=== PATIENT | male | born 1980 | race Caucasian/White ===

== ENCOUNTER → 2022-03-15 | Outpatient (CLI) | payer BC ==
[2022-03-15 15:38] LABS: RED CELL DISTRIBUTION WIDTH 13.7 % (11.5-14.5)
[2022-03-15 15:56] LABS: CARBON DIOXIDE 27.1 mmol/L (20.0-32)
== END | disposition home or self-care (01) ==
LOC: LAB 15:10
PROVIDERS: ATTEND Nurse Practitioner Family
DX: R10.13 Epigastric pain (principal)
CPT/HCPCS: 36415; 80053; 82150; 83690; 85027

== ENCOUNTER → 2022-03-16 | Outpatient (CLI) | payer BC, OTHER ==
--- NOTE | 2022-03-16 15:59 | DIREP ---
PROCEDURE:ABDOMINAL ULTRASOUND COMPARISON:None. INDICATIONS:R10.13 EPIGASTRIC PAIN TECHNIQUE:High resolution sonographic examination was performed of the abdomen. FINDINGS: PANCREAS:The pancreas is partially obscured by bowel gas shadowing. Visualized portions appear unremarkable. LIVER:Enlarged. Increased hepatic echotexture with poor sonographic penetration consistent with hepatic steatosis. There is decreased echotexture adjacent to the gallbladder fossa, consistent with focal fatty sparing. Hypoechoic area centrally in the liver measuring 2 x 1.4 x 1.8 cm. Hepatopetal flow in the portal vein. Normal spectral waveform on the portal vein. GALLBLADDER:Dilated. Layering sludge within the gallbladder. No gallstones. No evidence for gallbladder wall thickening or pericholecystic fluid. BILIARY:There is no biliary ductal dilatation. RIGHT KIDNEY:Normal. No hydronephrosis. LEFT KIDNEY:Normal. No hydronephrosis. SPLEEN:Nonenlarged, limited visualization due to rib shadow. AORTA:The visualized portions appear unremarkable. IVC:Intrahepatic portions unremarkable. OTHER:Negative. No ascites is identified. AORTA (mid):1.6 x 1.5 cm CBD:0.2 cm GALLBLADDER WALL:0.1 cm LIVER:18.6 cm in length. RIGHT KIDNEY:11.9 x 4.8 x 6.0 cm LEFT KIDNEY:11.3 x 6.1 x 6.9 cm SPLEEN:9.9 x 9.4 x 5.4 cm, Volume: 264.5 ml CONCLUSION: 1. Dilated gallbladder with layering intraluminal sludge. No gallbladder wall thickening or pericholecystic fluid to suggest acute acalculous cholecystitis. Findings may represent early acute acalculous cholecystitis. 2. Hepatomegaly. Hepatic steatosis. Dictated by: ELLA Physician on 03/16/2022 at 09:17 AM ac
== END | disposition home or self-care (01) ==
LOC: RAD 07:54
PROVIDERS: ATTEND Nurse Practitioner Family
DX: K82.8 Other specified diseases of gallbladder (principal); R16.0 Hepatomegaly, not elsewhere classified; K76.0 Fatty (change of) liver, not elsewhere classified
CPT/HCPCS: 76700; 93976

== ENCOUNTER → 2024-06-06 | Outpatient (CLI) | payer BC | END | disposition home or self-care (01) | LOC: RAD 13:44 | PROVIDERS: ATTEND Internal Medicine | DX: I07.1 Rheumatic tricuspid insufficiency (principal); I48.0 Paroxysmal atrial fibrillation | CPT/HCPCS: 93306 ==